=== PATIENT | female | born 1945 ===

== ENCOUNTER 2018-09-29 08:28 | Emergency (ER) | payer MEDICARE, OTHER ==
[2018-09-29 08:38] VITALS: BMI 33.5
[2018-09-29 08:40] VITALS: PULSE 55
--- NOTE | 2018-09-29 10:02 | ED PDOC ---
HPI: General Adult Time Seen by Provider: 09/29/18 09:13 Chief Complaint (Nursing): Dizziness/Lightheaded Chief Complaint (Provider): Hypotension History Per: Patient History/Exam Limitations: no limitations Onset/Duration Of Symptoms: Days Current Symptoms Are (Timing): Still Present Additional History Per: Family Additional Complaint(s): 73 year old female presents to the ED for an evaluation of low blood pressure onset 3 days ago. At 6am patient had a heart rate of 84bpm and felt dizzy. Patient had one episode of diarrhea yesterday. Patient takes anti-hypertensive medications, Losartan potassium 100mg, Clonidine 25mg, Labetalol 200mg and Amlodipine 10mg. In addition to those medications, patient was recently prescribed Chlorthalidone 25 mg for the symptoms. Denies vomiting, diarrhea or chest pain. PMD: Jamarcus Tobar Past Medical History Reviewed: Historical Data, Nursing Documentation, Vital Signs Vital Signs: Last Vital Signs Temp 98.1 F 09/29/18 08:39 Pulse 55 L 09/29/18 08:39 Resp 18 09/29/18 08:39 BP 135/61 09/29/18 08:55 Pulse Ox 100 09/29/18 08:39 - Medical History PMH: Arthritis, HTN, Hyperlipidemia - Family History Family History: States: Unknown Family Hx - Social History Current smoker - smoking cessation education provided: No Alcohol: None Drugs: Denies - Allergies Allergies/Adverse Reactions: Allergies Allergy/AdvReac Type Severity Reaction Status Date / Time No Known Allergies Allergy Verified 09/29/18 09:37 Review of Systems ROS Statement: Except As Marked, All Systems Reviewed And Found Negative Constitutional: Negative for: Fever Cardiovascular: Negative for: Chest Pain Gastrointestinal: Negative for: Nausea, Vomiting, Abdominal Pain, Diarrhea Neurological: Positive for: Dizziness Physical Exam - Reviewed Nursing Documentation Reviewed: Yes Vital Signs Reviewed: Yes - Physical Exam Appears: Positive for: Well, Non-toxic, No Acute Distress Head Exam: Positive for: ATRAUMATIC, NORMAL INSPECTION, NORMOCEPHALIC Skin: Positive for: Normal Color, Warm, Dry. Negative for: Rash Eye Exam: Positive for: EOMI, Normal appearance, PERRL ENT: Positive for: Normal ENT Inspection Neck: Positive for: Normal, Painless ROM, Supple. Negative for: Decreased ROM Cardiovascular/Chest: Positive for: Regular Rate, Rhythm. Negative for: Murmur Respiratory: Positive for: Normal Breath Sounds. Negative for: Decreased Breath Sounds, Wheezing, Respiratory Distress Gastrointestinal/Abdominal: Positive for: Normal Exam, Soft. Negative for: Tenderness, Guarding, Rebound Back: Positive for: Normal Inspection. Negative for: L CVA Tenderness, R CVA Tenderness Extremity: Positive for: Normal ROM. Negative for: Tenderness, Pedal Edema, Deformity Neurologic/Psych: Positive for: Alert, Oriented (x3). Negative for: M otor/Sensory Deficits - Laboratory Results Result Diagrams: 09/29/18 10:00 09/29/18 10:00 - ECG O2 Sat by Pulse Oximetry: 100 (RA) Pulse Ox Interpretation: Normal Medical Decision Making Medical Decision Making: Time: 938 Initial Plan: EKG CBC w/ Differential ED Urine dipstick Heplock Insertion Reevaluation Scribe Attestation: Documented by Heber Serrano, acting as a scribe for Aida John MD. Provider Scribe Attestation: All medical record entries made by the Scribe were at my direction and personally dictated by me. I have reviewed the chart and agree that the record accurately reflects my personal performance of the history, physical exam, medical decision making, and the department course for this patient. I have also personally directed, reviewed, and agree with the discharge instructions and disposition. - case d/w Dr. Tobar. Agrees that symptoms may be due Chlorthalidone. Agrees with plans to cut dose of 25mg tablet to 1/2 tablet daily. This is communicated to patient and her . She has an appointment with Dr. Tobar in 3 days (on Tuesday) Disposition - Clinical Impression Clinical Impression: Medication adverse effect - Patient ED Disposition Is Patient to be Admitted: No Doctor Will See Patient In The: Office Counseled Patient/Family Regarding: Diagnosis, Need For Followup - Disposition Referrals: Jamarcus Tobar MD [Family Provider] - Disposition: Routine/Home Disposition Time: 10:30 Condition: STABLE Additional Instructions: Take 1/2 tablet of medicine (Chlorthalidone) daily and see Dr. Amadou lam on Tuesday. Instructions: Side Effects From Medicines Forms: [facility] (Georgian) - POA Present On Arrival: None
[2018-09-29 10:10] LABS: BASO % 0.7 % (0.0-2.0); EOS % 0.5 % (0.0-4.0); HEMOGLOBIN 11.7 g/dL (12.0-16.0); LYMPH # 1.2 K/uL (1.0-4.3); LYMPH % 24.3 % (20.0-40.0); MEAN CELL VOLUME 89.8 fl (81.0-99.0); MEAN CORPUSCULAR HEMOGLOBIN 30.7 pg (27.0-31.0); MEAN CORPUSCULAR HGB CONC 34.2 g/dL (33.0-37.0); MEAN PLATELET VOLUME 9.6 fl (7.2-11.7); MONO # 0.8 K/uL (0.0-0.8); MONO % 15.8 % (0.0-10.0); NEUT % 58.7 % (50.0-75.0); RBC 3.81 Mil/uL (3.80-5.20); RED CELL DISTRIBUTION WIDTH 12.5 % (11.5-14.5); WHITE BLOOD COUNT 5.1 K/uL (4.8-10.8)
[2018-09-29 10:24] LABS: ALB/GLOB RATIO 1.2 (1.0-2.1); ALBUMIN 3.9 g/dL (3.5-5.0); CALCIUM 9.2 mg/dL (8.4-10.2)
--- NOTE | 2018-09-29 10:46 | CARD ---
APPROVED REPORT Date of service: 09/29/2018 EKG Measurement Heart [id number] <Conclusion> Sinus bradycardia with premature atrial complexes Otherwise normal ECG
[2018-09-29 11:27] VITALS: BP 142/57; RESP 16; TEMP 98; O2SAT 98
== END 2018-09-29 11:27 | disposition home or self-care (01) ==
LOC: H.ER 08:28
DX: T88.7XXA Unspecified adverse effect of drug or medicament, initial encounter (principal); E78.5 Hyperlipidemia, unspecified; I10 Essential (primary) hypertension; I49.1 Atrial premature depolarization